=== PATIENT | male | born 1965 | race Caucasian/White ===

== ENCOUNTER 2024-04-25 18:57 | Inpatient (IN) | payer MEDICARE, SELFPAY ==
[2024-04-25] VITALS (10 sets, daily range): BP systolic 119–161; BP diastolic 67–87; PULSE 85–99; RESP 15–22; TEMP 36.6–37.1; O2SAT 86–98; BMI 25.6; BMI 34.7
--- NOTE | 2024-04-25 19:29 | EKG12_ITS ---
Test Reason : ALT MENTAL Blood Pressure : / mmHG Vent. Rate : 097 BPM Atrial Rate : 097 BPM P-R Int : 150 ms QRS Dur : 068 ms QT Int : 340 ms P-R-T Axes : -17 038 051 degrees QTc Int : 431 ms Normal sinus rhythm Normal ECG Confirmed by MARCO OJEDA, SOLOMON ([id number]), editor department ADEBAYO GARZA ([id number]) on 04/27/2024 6:54:47 AM Referred By: MERLE Confirmed By:SOLOMON LARA MD
--- NOTE | 2024-04-25 19:29 | CT_ITS ---
EXAM: CT HEAD WITHOUT INTRAVENOUS CONTRAST CLINICAL INDICATION: confusion TECHNIQUE: Multiple axial images were obtained of the head without intravenous contrast. This CT exam was performed using one or more of the following dose reduction techniques: automated exposure control, adjustment of the mA and/or kV according to patient size, and/or use of iterative reconstruction technique. COMPARISON: No relevant prior studies available. FINDINGS: BRAIN AND EXTRA-AXIAL SPACES: No significant abnormality. No intra- or extra-axial hemorrhage. No evidence of acute infarct. No intracranial mass or mass effect. There is preservation of the danielson/white matter interface. Ventricles are appropriate for age. Basal cisterns are patent. BONES/JOINTS: No significant abnormality. No discrete lytic or blastic abnormalities. SINUSES: No significant findings. MASTOID AIR CELLS: No significant effusion. ORBITS: No acute findings. CT/Brain/Head without Contrast IMPRESSION: Negative head/brain CT without intravenous contrast. Electronically Signed: Jeanmarie Young DO at 21:00 EDT ,
--- NOTE | 2024-04-25 19:38 | EDS_ITS ---
HPI History of Present Illness Chief Complaint: Suicidal Detail of Chief Complaint: Suicidal ideation, shortness of breath, confusion Informant: patient Narrative Narrative: Patient presents via EMS secondary to shortness of breath and suicidal ideation. Reportedly he was recently admitted to another hospital for hyponatremia. I was able to review records. Patient was admitted to [facility] from April 17 through April 23 secondary to confusion, hyponatremia, alcohol withdrawal. Reportedly his sodium level was 96 on admission. Patient was seen again at [facility] emergency room yesterday. At that time he was noted to be hypoxic on room air and patient stated that he was supposed to be discharged home on oxygen but did not wait for it. Yesterday he had an extensive workup and at that time his sodium was 121. He did qualify for home oxygen and per documentation he was discharged on 2 L nasal cannula home oxygen. Patient presents today via EMS after a friend of the campground called concerned about his erratic behavior and confusion. He reports suicidal ideation with plan to shoot himself in the head. He denies any prior attempts to harm himself. He does admit to some alcohol use today. He reports a history of cocaine use in the distant past, but denies any drug use today. [facility] Medical History Substance abuse Alcohol abuse Anxiety Depression Hypothyroidism Osteoporosis Smoker Sleep apnea COPD (chronic obstructive pulmonary disease) Irregular heart beat Migraines Allergy/AdvReac Type Severity Reaction Status Date / Time Penicillins AdvReac Intermediate rash Verified 04/25/24 19:42 Social History Smoking Status: Current every day smoker tobacco type: cigarettes ROS ROS ED Constitutional Constitutional ED: Reports fever(s) and subjective ENT ENT ED: Denies rhinorrhea or sore throat Cardiovascular Cardiovascular: Reports chest pain Respiratory/Chest Respiratory/Chest: Reports dyspnea Gastrointestinal Gastrointestinal: Denies diarrhea or vomiting Musculoskeletal Musculoskeletal: Denies arthralgias Neurologic Neurologic: Denies headache(s) Psychiatric Psychiatric: Denies anxiety or depression EXAM Physical Exam Const Vital Signs: 04/25/24 19:06 04/25/24 19:58 04/25/24 20:00 Temperature 98.7 F Temperature Source Oral Pulse Rate 91 88 99 Respiratory Rate 16 21 H 19 H Blood Pressure 161/85 H 136/83 H 136/83 H Blood Pressure Mean 110 100 100 Pulse Ox 86 98 98 Oxygen Delivery Method Room Air Nasal Cannula Nasal Cannula Oxygen Flow Rate (L/min) 3 3 04/25/24 21:00 Temperature Temperature Source Pulse Rate 98 Respiratory Rate 21 H Blood Pressure 132/84 H Blood Pressure Mean 100 Pulse Ox 98 Oxygen Delivery Method Nasal Cannula Oxygen Flow Rate (L/min) 3 Positive well nourished and well developed General Appearance ED: well developed HEENT Reports moist mucous membranes Eyes EOMs intact bilaterally Chest Wall inspection of chest normal and palpation of chest normal Resp normal respiratory effort and clear to auscultation bilaterally Cardio regular rate and regular rhythm GI non-tender Palpation: soft Extremity normal to inspection Neuro Neuro Narrative: Patient alert and will answer questions appropriately, but is somewhat slow to answer. No focal neurologic deficit. 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 He is currently on 2 L nasal cannula. IV line established. Labwork obtained to evaluate for leukocytosis, anemia, and electrolyte derangement. Patient will be given normal saline at 150 cc/h. Chest x-ray obtained to evaluate for acute lung pathology, cardiac size, or mediastinal abnormality. CT head will be obtained secondary to his confusion. History & Record Review Discussion w/independent historian: Patient Additional record(s) reviewed:: Prior inpatient record, Prior outpatient record and Prior labs Lab Data Attestation: I reviewed the patient's lab results. Labs: Laboratory Results - last 24 hr 04/25/24 04/25/24 20:04 21:10 WBC 10.1 RBC 3.79 L Hgb 12.2 L Hct 34.6 L MCV 91.3 MCH 32.2 H MCHC 35.3 RDW Std Deviation 45.1 H RDW Coeff of Scott 13.3 Plt Count 318 MPV 8.7 Immature Gran % (Auto) 3.600 H Neut % (Auto) 65.0 Lymph % (Auto) 18.5 L [place] % (Auto) 10.0 Eos % (Auto) 2.4 Baso % (Auto) 0.5 Absolute Neuts (auto) 6.6 Absolute Lymphs (auto) 1.87 Nucleated RBC % 0 D-Dimer Quant (PE/DVT) 0.65 H* Sodium 124 L Potassium 3.7 Chloride 86 L Carbon Dioxide 27.0 Anion Gap 11 BUN 10 Creatinine 0.89 Estim Creat Clear Calc 69.87 Est GFR (MDRD) Af Amer 113 Est GFR (MDRD) Non-Af 93 BUN/Creatinine Ratio 11.3 Glucose 113 H Calcium 9.5 Total Bilirubin 0.60 Direct Bilirubin 0.23 AST 26 ALT 50 Alkaline Phosphatase 51 Troponin I High Sens 5 Total Protein 7.4 Albumin 3.5 Globulin 3.9 Lipase 25 Urine Opiates Screen NEGATIVE Urine Methadone Screen NEGATIVE Ur Barbiturates Screen POSITIVE H Ur Phencyclidine Scrn NEGATIVE Ur Amphetamines Screen NEGATIVE MDMA (Ecstasy) Screen NEGATIVE U Benzodiazepines Scrn NEGATIVE Urine Cocaine Screen NEGATIVE U Cannabinoids Screen POSITIVE H Ur Drug Screen Comment Ethyl Alcohol 3.0 Radiography Chest X-Ray - ED: 1 View, Read by ED Physician, Chronic Changes and No Infiltrates Diagnostic Testing: Clinical Impression(s) from Imaging Studies Brain CT 04/25/24 19:29 IMPRESSION: Negative head/brain CT without intravenous contrast. Electronically Signed: Jeanmarie Wynnjasenmary janeDO at 21:00 EDT , Chest X-Ray 04/25/24 20:22 IMPRESSION: No radiographic evidence of acute cardiopulmonary disease. Electronically Signed: Jeanmarie YoungDO at 21:00 EDT , EKG Initial EKG: Attestation: I personally reviewed and interpreted this EKG as follows: Interpretation: Sinus Rhythm (Normal sinus rhythm 97 bpm. No acute ischemia.) Treatment and Re-Evaluation :: CBC was a white count of 10.1 with 65% neutrophils. Hemoglobin is 12.2 with hematocrit of 34.6. Chemistry studies significant for a sodium of 124 and a chloride of 86. Potassium is normal at 3.7. LFTs are unremarkable. Troponin is normal at 5. EtOH is 3. D-dimer is slightly elevated at 0.65. This was ordered initially when I saw the patient and he had hypoxia with complaints of some chest pressure. After reviewing records patient has had hypoxia that has been worked up. He is supposed to be wearing home oxygen and has not. He does not have pleuritic chest pain, does not appear dyspneic or tachypneic. He is not tachycardic. I do not feel he needs a CTA of the chest to rule out a clot. Chest x-ray per my interpretation was no evidence of focal infiltrate. Radiology interpretation reviewed and agrees. EKG is unremarkable with no evidence of ischemia. Patient will require evaluation by crisis, however with his hypoxia and hyponatremia I do not think I can medically clear him until he is more stable. I will speak with hospitalist regarding observation and evaluation by crisis on the floor. Patient did fall asleep in the emergency room. Even with nasal cannula in place, he desaturates secondary to his obstructive sleep apnea. He is placed on CPAP at bedside by respiratory therapy. Discharge Plan Dx/Rx/DC Orders Clinical Impression: Hyponatremia, Confusion, Hypoxia, Suicidal ideation Disposition Disposition: Acute Care Hospital [facility]
[2024-04-25 20:12] LABS: Absolute Lymphocyte Count 1.87 X10^3/uL (0.83-4.51); Absolute Neutrophil Count 6.6 X10^3/uL (2.0-7.7); Basophil# 0.05 X10^3/uL; Basophil% 0.5 % (0-1); Eosinophil# 0.24 X10^3/uL; Eosinophils% 2.4 % (0-5); Hematocrit 34.6 % (40-54); Hemoglobin 12.2 g/dL (13.0-16.5); Lymphocyte # 1.87 X10^3/ul (0.83-4.51); Lymphocyte % 18.5 % (19-41); Mean Corp Hgb Conc 35.3 g/dL (32-36); Mean Corpuscular Hgb 32.2 pg (27.0-32.0); Mean Corpuscular Volume 91.3 fL (80-94); Mean Platelet Vol. 8.7 fl (6.2-12.0); Monocyte# 1.01 X10^3/uL; NRBC Flagged by Analyzer 0 % (0-5); Neutrophil # 6.58 X10^3/uL (2.7-7.7); Platelet Count 318 K/mm3 (150-450); RBC Distribution Width CV 13.3 % (11.6-14.6); RBC Distribution Width SD 45.1 fl (35.1-43.9); Red Blood Count 3.79 M/mm3 (4.6-6.2); White Blood Count 10.1 K/mm3 (4.4-11.0)
--- NOTE | 2024-04-25 20:22 | RAD_ITS ---
EXAM: XR CHEST, 1 VIEW CLINICAL INDICATION: sob TECHNIQUE: Frontal view of the chest. COMPARISON: No relevant prior studies available. FINDINGS: LUNGS AND PLEURAL SPACES: No significant abnormality. No consolidation or edema. No pneumothorax. No effusion. HEART: No significant abnormality. Cardiac silhouette not enlarged. MEDIASTINUM: Central airways and mediastinal contour are unremarkable. BONES/JOINTS: No significant abnormality. No acute fracture. SOFT TISSUES: No significant abnormality. RAD/Chest 1 View (Portable) IMPRESSION: No radiographic evidence of acute cardiopulmonary disease. Electronically Signed: Jeanmarie Young DO at 21:00 EDT ,
[2024-04-25 20:25] LABS: D-Dimer Quantitative (DVT/PE) 0.65 FEU/ug/m (0.27-0.49)
[2024-04-25 20:31] LABS: AST(SGOT) 26 U/L (15-37); Alanine Aminotransfer ALT/SGPT 50 U/L (16-61); Albumin, Serum 3.5 g/dL (3.2-5.0); Alkaline Phosphatase 51 U/L (45-117); Anion Gap 11 (5-15); BUN 10 mg/dL (7-18); BUN/Creat Ratio 11.3 RATIO (10-20); Bilirubin, Direct 0.23 mg/dL (0.00-0.30); Calcium,Total 9.5 mg/dL (8.5-10.1); Chloride 86 mmol/L (98-107); Creatinine, Serum 0.89 mg/dL (0.70-1.30); EST Glomerular Filtration Rate 93 mL/min (>60); Est Glom Filt Rate - Afr Amer 113 mL/min (>60); Estimated Creatinine Clearance 69.87 ml/min; Globulin 3.9 g/dL (2.2-4.2); Glucose 113 mg/dL (74-106); Lipase 25 U/L (13-75); Potassium 3.7 mmol/L (3.5-5.1); Protein, Total 7.4 g/dL (6.4-8.2); Sodium Level 124 mmol/L (136-145); Troponin-I HS 5 pg/mL (3.0-78.0)
[2024-04-25] MEDS: 0.9% Normal Saline (1000mL) 1,000 ML 150 ML IV (20:31)
[2024-04-25 21:29] LABS: Amphetamine Urine VISTA NEGATIVE (<1000 ng/mL); Barbiturate Urine VISTA POSITIVE (< 200 ng/mL); Benzodiazepine Urine VISTA NEGATIVE (< 200 ng/mL); Cocaine Urine VISTA NEGATIVE (< 300 ng/mL); Ecstacy Urine VISTA NEGATIVE (< 500 ng/mL); Methadone Urine VISTA NEGATIVE (< 300 ng/mL); PCP Urine VISTA NEGATIVE (< 25 ng/mL); THC Urine VISTA POSITIVE (< 50 ng/mL); Vista UDS pH Range 6
--- NOTE | 2024-04-25 21:54 | HP.PCM.HOS_ITS ---
HPI - General General Date of Admission: 04/25/24 Date of Service: 04/25/24 Chief Complaint: Agitation, suicidal ideation, hypoxia. HPI Narrative The patient is a 58 y/o M w/ PMHx: Chronic migraines, YURI on CPAP q HS, Hypothyroidism, Anxiety and Depression, EtOH abuse, COPD w/ Chronic Hypoxic Respiratory Failure (2L NC), tobacco use, Alcohol abuse, Polysubstance abuse (cocaine, cannabis) who presents to the [facility] ED on 04/25/24 with history of recent history of admission to [facility] 04/17/24-04/23/24 secondary to significant confusion, hyponatremia and alcohol withdrawal with reportedly his sodium at that admission 96 with evaluation in [place] ED the day prior to current presentation noted to be hypoxic on room air and unfortunately patient had reportedly been hypoxic during his evaluation and treatment the initial time and was supposed to be discharged on oxygen 2 L nasal cannula at his discharge but unfortunately he did not wait for this to be set up and left AMA now presenting with EMS secondary to concern for significant erratic behavior and confusion with patient reporting that he plans to shoot himself in the head with no prior history of attempting to self-harm with some alcohol use on day of presentation as well as a history of past cocaine use but denies any drug usage on current day of presentation. He notes that he went crazy. In the ED following interventions oxygen supplementation patient is completely alert and oriented and does state that he has had an occasional beer but has not started drinking again heavily. He notes that over the last 5 days he has had significant increased anxiety and describes them as panic attacks. He does admit to having stated he wanted to kill himself and shoot himself but he is now denying that sentiment. Workup in the ED included T98.7, heart rate 91, BP 161/85, respiratory rate 18, initially noted to 86% on room air however patient was sleeping at that time, most recent repeat vital signs heart rate 98, BP 132/84, respiratory rate 21, 98% on 3 L, CBC with WBC 10.1, hemoglobin 12.2, MCV 91.3, platelet 318 with increased immature granulocytes, D-dimer 0.65, CMP with sodium 124, chloride 86, glucose 113 otherwise hepatic profile unremarkable, troponin 5, lipase 25, UDS with positive barbiturates and cannabis, ethyl alcohol 3, CT of the brain with no acute intracranial findings, chest x-ray with no acute cardiopulmonary findings, EKG was sinus rhythm with no acute evidence of ischemia. In the ED patient ministered maintenance IV fluids. [facility] Medical History (Updated 04/25/24 @ 21:[address] Nuris Gil MD) Substance abuse Alcohol abuse Anxiety Depression Hypothyroidism Osteoporosis Smoker Sleep apnea COPD (chronic obstructive pulmonary disease) Irregular heart beat Migraines Home Medications ?Medication ?Instructions ?Recorded ?Last Taken ?Type atorvastatin 40 mg tablet 40 mg PO DAILY 04/25/24 Unknown History cyclobenzaprine 10 mg tablet 10 mg PO TID 04/25/24 Unknown History diclofenac sodium 1 % topical gel 2 g topical DAILY 04/25/24 Unknown History folic acid 1 mg tablet 1 mg PO DAILY 04/25/24 Unknown History furosemide 20 mg tablet (Lasix) 20 mg PO DAILY 04/25/24 Unknown History gabapentin 100 mg capsule 100 mg PO DAILY 04/25/24 Unknown History hydroxyzine pamoate 50 mg capsule 50 mg PO TID PRN PRN itch 04/25/24 Unknown History levothyroxine 75 mcg tablet 75 mcg PO DAILY 04/25/24 Unknown History (Euthyrox) losartan 50 mg-hydrochlorothiazide 1 tab PO DAILY 04/25/24 Unknown History 12.5 mg tablet (Hyzaar) metoprolol tartrate 25 mg tablet 25 mg PO BID 04/25/24 Unknown History multivitamin with iron (Daily 1 tab PO DAILY 04/25/24 Unknown History Vitamin with Iron tablet) pyridoxine (vitamin B6) 100 mg 100 mg PO DAILY 04/25/24 Unknown History tablet tamsulosin 0.4 mg capsule (Flomax) 0.4 mg PO DAILY 04/25/24 Unknown History Allergy/AdvReac Type Severity Reaction Status Date / Time Penicillins AdvReac Intermediate rash Verified 04/25/24 19:42 Family History (Updated 04/25/24 @ 22:[address] Magi Rodriguez MD) Mother Heart disease Hypertension Father Alcoholism Surgical History (Updated 04/25/24 @ 22:[address] Magi Rodriguez MD) S/P right inguinal hernia repair Status post bilateral total hip replacement Social History (Updated 04/25/24 @ 22:[address] Magi Rodriguez MD) household members: other details: Notes having a roommate. Smoking Status: Current every day smoker tobacco type: cigarettes alcohol intake: current alcohol intake frequency: a few times a month details: Prior heavy liquor/beer intake, notes only couple beers since recent dc. substance use type: former substance user Date of last use: Prior cocaine usage. and marijuana ROS ROS Narrative Admission Review of Systems: CONSTITUTIONAL: No weight loss, fever, chills, + weakness or fatigue. HEENT: Eyes: No visual loss, blurred vision, double vision or yellow sclerae. Ears, Nose, Throat: No hearing loss, sneezing, congestion, runny nose or sore throat. SKIN: No rash or itching, lesions, wounds. CARDIOVASCULAR: No chest pain, chest pressure or chest discomfort, palpitations, edema, orthopnea, syncopal events. RESPIRATORY: + Chronic cough with nonproductive sputum. No shortness of breath,, occasional wheezing hemoptysis. GASTROINTESTINAL: No anorexia, nausea, vomiting or diarrhea, abdominal pain, melena, BRBPR. GENITOURINARY: No dysuria, frequency, urgency or retention. NEUROLOGICAL: + Transient significant confusion while hypoxic, improved. No headache, dizziness, syncope, paralysis, ataxia, numbness or tingling in the extremities, focal weakness, change in bowel or bladder control, seizure. MUSCULOSKELETAL: + Muscle, back pain, joint pain or stiffness. HEMATOLOGIC: + Chronic anemia, easy bleeding/bruising. LYMPHATICS: No enlarged nodes. No history of splenectomy. PSYCHIATRIC: + History of anxiety and depression and reports recently panic attacks in addition to recent suicidal ideation. ENDOCRINOLOGIC: No reports of sweating, cold or heat intolerance. No polyuria or polydipsia. ALLERGIES: + History of rhinitis. Vital Signs Vital Signs Vital Signs: 04/25/24 19:06 04/25/24 19:58 04/25/24 20:00 Temperature 98.7 F Temperature Source Oral Pulse Rate 91 88 99 Respiratory Rate 16 21 H 19 H Blood Pressure 161/85 H 136/83 H 136/83 H Blood Pressure Mean 110 100 100 Pulse Ox 86 98 98 Oxygen Delivery Method Room Air Nasal Cannula Nasal Cannula Oxygen Flow Rate (L/min) 3 3 04/25/24 21:00 Temperature Temperature Source Pulse Rate 98 Respiratory Rate 21 H Blood Pressure 132/84 H Blood Pressure Mean 100 Pulse Ox 98 Oxygen Delivery Method Nasal Cannula Oxygen Flow Rate (L/min) 3 Weight Weight: 140 lb Body Mass Index (BMI) 25.6 Physical Exam Narrative Physical Examination: General: Initially on CPAP but awakens, alert, oriented times greater than 3, cooperative, seated upright in the ED bed, fatigued but following discussion suspect this is at his baseline. Skin: Normal color, normal turgor, no icterus, no cyanosis except very staged ecchymoses likely from recent IV placements with recent admission. HEENT: AT/NC, EOMI, PERRLA, moderately dry MM, no carotid bruits or JVD noted. Lungs: Mildly diminished, greater bases, appropriate effort, occasional coughing during evaluation but nonproductive, no rales, ronchi or wheezing. Heart: Regular rate and rhythm; no gallop, rub audible. Abdomen: Soft, overweight, NTTP, ND, mildly hyperactive BS, no appreciated HSM. Extremities: No cyanosis, clubbing, or edema. Neurological: Patient awake, alert, oriented as noted, cognitive function improved and suspect currently baseline intact; pupils equally reactive to light and accommodation, cranial nerves grossly normal, moving all 4 extremities, no focal deficits, strength preserved. Psychiatric: Affect appears fatigued but currently appears normal, discussed recent suicidal ideation and he notes he was having recent panic attacks with underlying anxiety and depression, currently is aware that he made those statements but states he does not feel that way currently. Results Lab / Micro Data 04/25/24 20:04 04/25/24 20:04 Labs: Laboratory Results - last 24 hr 04/25/24 20:04: WBC 10.1, RBC 3.79 L, Hgb 12.2 L, Hct 34.6 L, MCV 91.3, MCH 32.2 H, MCHC 35.3, RDW Std Deviation 45.1 H, RDW Coeff of Scott 13.3, Plt Count 318, MPV 8.7, Immature Gran % (Auto) 3.600 H, Neut % (Auto) 65.0, Lymph % (Auto) 18.5 L, [place] % (Auto) 10.0, Eos % (Auto) 2.4, Baso % (Auto) 0.5, Absolute Neuts (auto) 6.6, Absolute Lymphs (auto) 1.87, Nucleated RBC % 0, D-Dimer Quant (PE/DVT) 0.65 H*, Sodium 124 L, Potassium 3.7, Chloride 86 L, Carbon Dioxide 27.0, Anion Gap 11, BUN 10, Creatinine 0.89, Estim Creat Clear Calc 69.87, Est GFR (MDRD) Af Amer 113, Est GFR (MDRD) Non-Af 93, BUN/Creatinine Ratio 11.3, G lucose 113 H, Calcium 9.5, Total Bilirubin 0.60, Direct Bilirubin 0.23, AST 26, ALT 50, Alkaline Phosphatase 51, Troponin I High Sens 5, Total Protein 7.4, Albumin 3.5, Globulin 3.9, Lipase 25, Ethyl Alcohol 3.0 04/25/24 21:10: Urine Opiates Screen NEGATIVE, Urine Methadone Screen NEGATIVE, Ur Barbiturates Screen POSITIVE H, Ur Phencyclidine Scrn NEGATIVE, Ur Amphetamines Screen NEGATIVE, MDMA (Ecstasy) Screen NEGATIVE, U Benzodiazepines Scrn NEGATIVE, Urine Cocaine Screen NEGATIVE, U Cannabinoids Screen POSITIVE H, Ur Drug Screen Comment Imaging Radiology Impression Brain CT 04/25/24 19:29 IMPRESSION: Negative head/brain CT without intravenous contrast. Electronically Signed: Jeanmarie Radha Young DO at 21:00 EDT , Chest X-Ray 04/25/24 20:22 IMPRESSION: No radiographic evidence of acute cardiopulmonary disease. Electronically Signed: Jeanmarie Radha Young DO at 21:00 EDT , Assessment & Plan Assessment/Plan (1) Hypoxia: PLAN: Plan The patient is a 58 y/o M w/ PMHx: Chronic migraines, YURI on CPAP q HS, Hypothyroidism, Anxiety and Depression, EtOH abuse, COPD w/ Chronic Hypoxic Respiratory Failure (2L NC), tobacco use, Alcohol abuse, Polysubstance abuse (cocaine/cannabis) who presents to the [facility] ED on 04/25/24 with history of recent history of admission to [facility] 04/17/24-04/23/24 secondary to significant confusion, hyponatremia and alcohol withdrawal with reportedly his sodium at that admission 96 with evaluation in [place] ED the day prior to current presentation noted to be hypoxic on room air and unfortunately patient had reportedly been hypoxic during his evaluation and treatment the initial time and was supposed to be discharged on oxygen 2 L nasal cannula at his discharge but unfortunately he did not wait for this to be set up and left AMA now presenting with EMS secondary to concern for significant erratic behavior and confusion with patient reporting that he plans to shoot himself in the head with no prior history of attempting to self-harm with some alcohol use on day of presentation as well as a history of past cocaine use but denies any drug usage on current day of presentation. He notes that he went crazy. #1. Acute Encephalopathy, suspect Multifactorial, concern for Acute Hypoxia secondary to noncompliance with home oxygen therapy with underlying COPD with chronic hypoxic respiratory failure as well as concern for potentially recurrent Acute EtOH Withdrawal but lower suspicion as well as evidence of polysubstance abuse with also positive cannabis: Will admit to MS, will continue oxygen supplementation to maintain appropriate saturations, mentation seems to improved with placing patient back on supplementation he is already supposed to be on and per his report now is already set up at home but he does not use unfortunately, given patient does report alcohol intake today and now his level is negative some concern for withdrawal but again patient is not tachycardic and does not seem tremulous or anything of the sort thus lower suspicion but to be cautious will maintain on CIWA and if becomes appropriate would initiate tapering course of phenobarbital, will have as needed gabapentin, Catapres, Bentyl, Vistaril, IV fluids, IV antiemetics, Tylenol as needed for pain. Will consult Case management for substance abuse and also for suicidal ideation. Mag, phos pending. Will maintain on multivitamin, thiamine and folic acid. Given patient is now alert and oriented and states that he did in fact admit to 1 to kill himself but believes this sentiment was made in haste because of his recent increased anxiety and panic attacks and is no longer feeling this way with stable current status if no further acute events overnight would plan crisis evaluation in AM. #2. Hyponatremia, hypochloremia, unclear chronicity given alcohol abuse history reported, however hypovolemic component suspected: Admission sodium 124, chloride 86, no prior comparison labs but patient does have alcohol abuse history, will continue to judiciously hydrate and repeat CMP in the a.m. to further elucidate. #3. Hypertension, possibly arrhythmia but unclear: Continue home regimen including metoprolol, PRN hydralazine. #4. Hypothyroidism: Chart reported history, unable to determine patient's medications, will obtain TSH and free T4 to be cautious. #5. Chronic COPD w/ Chronic Hypoxic Respiratory Failure: Will maintain on oxygen with wean as tolerated to home 2L NC, will maintain on ATC budesonide therapy, PRN albuterol, HOB, IS parameters. #6. Chronic normocytic anemia, unclear chronicity: Admission hemoglobin 12.2, MCV 91.3, baseline hemoglobin unknown, will continue to trend CBC to further elucidate. #7. Former tobacco use: Encourage continued tobacco cessation. #8. YURI: Will maintain on CPAP nightly. #9. DVT prophylaxis: Lovenox. Charges/Coding Visit Charges Inpatient E&M: 78047 Init Hosp L2
--- NOTE | 2024-04-25 22:14 | CPS ---
VP ACCOUNT DIRECTOR bled in 3L O2
--- NOTE | 2024-04-25 22:23 | CPS ---
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
[2024-04-25 22:53] LABS: Procalcitonin 0.05 ng/mL (0.00-0.09)
[2024-04-25 23:00] LABS: Magnesium 2.1 mg/dL (1.6-2.6)
--- NOTE | 2024-04-25 23:58 | CPS ---
Pt refusing bipap at this time
[2024-04-26] VITALS (12 sets, daily range): BP systolic 118–137; BP diastolic 72–77; PULSE 72–89; RESP 15–18; TEMP 36.7–37.1; O2SAT 3–96; BMI 34.9
[2024-04-26] MEDS: 0.9% Normal Saline (1000mL) 1,000 ML 125 ML IV ×2 (00:23→09:47)
[2024-04-26 05:09] LABS: Absolute Lymphocyte Count 2.11 X10^3/uL (0.83-4.51); Absolute Neutrophil Count 4.3 X10^3/uL (2.0-7.7); Basophil# 0.08 X10^3/uL; Eosinophils% 3.7 % (0-5); Hematocrit 31.9 % (40-54); Hemoglobin 10.5 g/dL (13.0-16.5); Lymphocyte # 2.11 X10^3/ul (0.83-4.51); Mean Corp Hgb Conc 32.9 g/dL (32-36); Mean Corpuscular Hgb 31.1 pg (27.0-32.0); Mean Corpuscular Volume 94.4 fL (80-94); Mean Platelet Vol. 8.6 fl (6.2-12.0); Monocyte# 1.01 X10^3/uL; Monocyte% 12.4 % (0-10); NRBC Flagged by Analyzer 0 % (0-5); Neutrophil # 4.28 X10^3/uL (2.7-7.7); Neutrophil % 52.6 % (47-70); Platelet Count 281 K/mm3 (150-450); RBC Distribution Width CV 13.4 % (11.6-14.6); RBC Distribution Width SD 46.2 fl (35.1-43.9); Red Blood Count 3.38 M/mm3 (4.6-6.2); White Blood Count 8.1 K/mm3 (4.4-11.0)
[2024-04-26 06:00] LABS: ALB/GLOB Ratio 0.9 RATIO (0.9-2.4); AST(SGOT) 24 U/L (15-37); Alanine Aminotransfer ALT/SGPT 44 U/L (16-61); Albumin, Serum 3.1 g/dL (3.2-5.0); Alkaline Phosphatase 46 U/L (45-117); Anion Gap 8 (5-15); BUN 9 mg/dL (7-18); BUN/Creat Ratio 11.9 RATIO (10-20); Calcium,Total 8.9 mg/dL (8.5-10.1); Chloride 93 mmol/L (98-107); Creatinine, Serum 0.76 mg/dL (0.70-1.30); EST Glomerular Filtration Rate 112 mL/min (>60); Est Glom Filt Rate - Afr Amer 136 mL/min (>60); Globulin 3.5 g/dL (2.2-4.2); Glucose 116 mg/dL (74-106); Potassium 4.3 mmol/L (3.5-5.1); Protein, Total 6.6 g/dL (6.4-8.2); Sodium Level 127 mmol/L (136-145); T4 Free Direct 1.05 ng/dL (0.76-1.46); Thyroid Stim Hormone (TSH) 5.55 uIU/mL (0.358-3.74)
--- NOTE | 2024-04-26 07:20 | PN.HOSP_ITS ---
Reason for Visit Reason for Visit: Diagnoses Hypoxemia (04/25/24) Objective Data Objective Data Vital Signs: Vital Signs Temp Pulse Resp BP Pulse Ox O2 Del Method O2 Flow Rate 98.8 F 72 15 137/77 H 96 Nasal Cannula 3 04/26/24 02:04 04/26/24 02:04 04/26/24 04:30 04/26/24 02:04 04/26/24 02:04 04/26/24 04:30 04/26/24 04:30 Oxygen Flow Rate (L/min) 3 Oxygen Delivery Method Nasal Cannula Weight: 189 lb 13.088 oz Body Mass Index (BMI) 34.9 Lab / Micro Data 04/26/24 04:45 04/26/24 09:23 Labs: Laboratory Results - last 24 hr 04/25/24 20:04: WBC 10.1, RBC 3.79 L, Hgb 12.2 L, Hct 34.6 L, MCV 91.3, MCH 32.2 H, MCHC 35.3, RDW Std Deviation 45.1 H, RDW Coeff of Scott 13.3, Plt Count 318, MPV 8.7, Immature Gran % (Auto) 3.600 H, Neut % (Auto) 65.0, Lymph % (Auto) 18.5 L, [place] % (Auto) 10.0, Eos % (Auto) 2.4, Baso % (Auto) 0.5, Absolute Neuts (auto) 6.6, Absolute Lymphs (auto) 1.87, Nucleated RBC % 0, D-Dimer Quant (PE/DVT) 0.65 H*, Sodium 124 L, Potassium 3.7, Chloride 86 L, Carbon Dioxide 27.0, Anion Gap 11, BUN 10, Creatinine 0.89, Estim Creat Clear Calc 69.87, Est GFR (MDRD) Af Amer 113, Est GFR (MDRD) Non-Af 93, BUN/Creatinine Ratio 11.3, Glucose 113 H, Calcium 9.5, Total Bilirubin 0.60, Direct Bilirubin 0.23, AST 26, ALT 50, Alkaline Phosphatase 51, Troponin I High Sens 5, Total Protein 7.4, Albumin 3.5, Globulin 3.9, Lipase 25, Ethyl Alcohol 3.0 04/25/24 21:10: Urine Opiates Screen NEGATIVE, Urine Methadone Screen NEGATIVE, Ur Barbiturates Screen POSITIVE H, Ur Phencyclidine Scrn NEGATIVE, Ur Amphetamines Screen NEGATIVE, MDMA (Ecstasy) Screen NEGATIVE, U Benzodiazepines Scrn NEGATIVE, Urine Cocaine Screen NEGATIVE, U Cannabinoids Screen POSITIVE H, Ur Drug Screen Comment 04/25/24 22:20: Phosphorus 5.0 H, Magnesium 2.1, Procalcitonin 0.05 04/26/24 04:45: WBC 8.1, RBC 3.38 L, Hgb 10.5 L, Hct 31.9 L, MCV 94.4 H, MCH 31.1, MCHC 32.9 D, RDW Std Deviation 46.2 H, RDW Coeff of Scott 13.4, Plt Count 281, MPV 8.6, Immature Gran % (Auto) 4.300 H, Neut % (Auto) 52.6, Lymph % (Auto) 26.0, [place] % (Auto) 12.4 H, Eos % (Auto) 3.7, Baso % (Auto) 1.0, Absolute Neuts (auto) 4.3, Absolute Lymphs (auto) 2.11, Nucleated RBC % 0, Sodium 127 L, Potassium 4.3, Chloride 93 L, Carbon Dioxide 26.0, Anion Gap 8, BUN 9, Creatinine 0.76, Estim Creat Clear Calc 100.70, Est GFR (MDRD) Af Amer 136, Est GFR (MDRD) Non-Af 112, BUN/Creatinine Ratio 11.9, Glucose 116 H, Calcium 8.9, Total Bilirubin 0.50, AST 24, ALT 44, Alkaline Phosphatase 46, Total Protein 6.6, Albumin 3.1 L, Globulin 3.5, Albumin/Globulin Ratio 0.9, TSH 5.55 H, Free T4 1.05 Radiography Diagnostic Testing: Radiology Impression Brain CT 04/25/24 19:29 IMPRESSION: Negative head/brain CT without intravenous contrast. Electronically Signed: Jeanmarie Young DO at 21:00 EDT , Chest X-Ray 04/25/24 20:22 IMPRESSION: No radiographic evidence of acute cardiopulmonary disease. Electronically Signed: Jeanmarie Young DO at 21:00 EDT , Chest CTA 04/26/24 23:23 IMPRESSION: Significant diffuse bilateral patchy groundglass airspace disease, upper lobe predominant, to include atypical infectious etiology. Recommend follow-up to resolution as neoplastic process is not excluded. No pulmonary embolus or acute aortic abnormality. Electronically Signed: Maximo Colon MD at 3:53 EDT , Physical Exam Narrative Patient states he smokes 2 packs/day since age of 17 or 18. He also worked in the [employer] company for 30 years. Drinks alcohol about 3-4 beers daily and sometimes hard liquor 3 shots. No fever. Patient has cough and brings up white mucus for last 1 to 2 weeks but no fever. Mild shortness of breath on exertion. Was prescribed 2 L of oxygen on April 24 Physical exam General: Alert, Oriented x3, Cooperative obesity grade 34.7 kg/m? HEENT: Atraumatic, PERRLA, EOMI, Normocephalic Oral: Oral mucosa moist no Gingival or Mucosal Lesions/ Ulcerations Neck: Supple, No JVD, Negative Carotid Bruits Chest wall/Lungs: Air entry diminished in bilateral lung bases. Bilateral coarse crepitations Cardiovascular: Regular rate, Regular Rhythm, Normal S1, Normal S2, No M/G/R Abdomen: Bowel Sounds Present, Soft, Non Tender, Non-Distended : No dysuria. No renal angle tenderness. No suprapubic tenderness. Extremities: No edema, Capillary Refill Less than 3 Seconds Skin: No rashes, No breakdown Musculoskeletal: No Tenderness to Palpation of Joints or Extremities Neurological: Cranial nerves II-XII grossly intact, DTR 2+/4. No acute focal neurological deficit. Psych/Mental Status: Flat affect. Had suicidal ideation but denies past attempt Assessment & Plan Assessment/Plan (1) Hypoxia: PLAN: Plan The patient is a 58 y/o M was brought to ED by squad for suicidal ideation, shortness of breath. Patient was having erratic behavior, confusion and SI with plan to shoot himself in the head. Patient was recently admitted in [facility] from April 17 to April 23 due to confusion, hyponatremia and alcohol withdrawal and reportedly, his sodium was 96 on admission at that time. Patient was again seen in the ER on 04/24 and was found to be hypoxic and was supposed to be discharged on oxygen but he did not wait for that. Patient denies prior history of suicidal attempt. Patient drinks alcohol and had before coming to ED. History of cocaine use in the distant past but denies any recent use #1. Acute encephalopathy, multifactorial, metabolic and toxic along with probable chronic hypoxic respiratory failure: Patient is being admitted to MedSurg floor. U tox was positive of barbiturates and cannabinoids. Hyponatremia management as below. Crisis evaluation and patient is in baseline mental status. Case management consult #2. Hyponatremia, hypochloremia, seems subacute/chronic Trembly hypotonic hypovolemic hyponatremia: Admission sodium 124, chloride 86. Sodium improved to 127. About a week ago patient's sodium was 96 as mentioned above. IV fluid normal saline with follow-up serum sodium #3. Hypertension, possibly arrhythmia but unclear: Continue home regimen including metoprolol, PRN hydralazine. #4. Hypothyroidism: TSH 5.55. Free T4 normal. #5. COPD w/ Chronic Hypoxic Respiratory Failure: Chest CTA shows significant diffuse bilateral patchy groundglass airspace disease predominantly in upper lobes. No pulmonary embolus or acute aortic abnormality. Was recommended follow- up chest CT scan for evaluate reevaluation. Continue home 2L NC, maintenance ATC budesonide therapy, DuoNeb as needed, incentive spirometry and Pep. With CT findings showing of groundglass opacities, possible atypical infection, COVID flu and RSV PCR are negative. Respiratory panel ordered. Aspergillus and histoplasma antibody also ordered. Does not seem bacterial pneumonia and therefore antibiotic not indicated and patient not having acute indication like fever, dyspnea at rest or tachypnea. #6. Chronic normocytic anemia, unclear chronicity: Admission hemoglobin 12.2, MCV 91.3, baseline hemoglobin unknown, follow-up H&H 10.5/32%. #7. Former tobacco use: Encourage continued tobacco cessation. #8. YURI: Will maintain on CPAP nightly. #9. DVT prophylaxis: Lovenox. Admission status changed from observation to full admission. 04/25/24 20:04: WBC 10.1, RBC 3.79 L, Hgb 12.2 L, Hct 34.6 L, MCV 91.3, MCH 32.2 H, MCHC 35.3, RDW Std Deviation 45.1 H, RDW Coeff of Scott 13.3, Plt Count 318, MPV 8.7, Immature Gran % (Auto) 3.600 H, Neut % (Auto) 65.0, Lymph % (Auto) 18.5 L, [place] % (Auto) 10.0, Eos % (Auto) 2.4, Baso % (Auto) 0.5, Absolute Neuts (auto) 6.6, Absolute Lymphs (auto) 1.87, Nucleated RBC % 0, D-Dimer Quant (PE/DVT) 0.65 H*, Sodium 124 L, Potassium 3.7, Chloride 86 L, Carbon Dioxide 27.0, Anion Gap 11, BUN 10, Creatinine 0.89, Estim Creat Clear Calc 69.87, Est GFR (MDRD) Af Amer 113, Est GFR (MDRD) Non-Af 93, BUN/Creatinine Ratio 11.3, Glucose 113 H, Calcium 9.5, Total Bilirubin 0.60, Direct Bilirubin 0.23, AST 26, ALT 50, Alkaline Phosphatase 51, Troponin I High Sens 5, Total Protein 7.4, Albumin 3.5, Globulin 3.9, Lipase 25, Ethyl Alcohol 3.0 04/25/24 21:10: Urine Opiates Screen NEGATIVE, Urine Methadone Screen NEGATIVE, Ur Barbiturates Screen POSITIVE H, Ur Phencyclidine Scrn NEGATIVE, Ur Amphetamines Screen NEGATIVE, MDMA (Ecstasy) Screen NEGATIVE, U Benzodiazepines Scrn NEGATIVE, Urine Cocaine Screen NEGATIVE, U Cannabinoids Screen POSITIVE H, Ur Drug Screen Comment 04/25/24 22:20: Phosphorus 5.0 H, Magnesium 2.1, Procalcitonin 0.05 04/26/24 04:45: WBC 8.1, RBC 3.38 L, Hgb 10.5 L, Hct 31.9 L, MCV 94.4 H, MCH 31.1, MCHC 32.9 D, RDW Std Deviation 46.2 H, RDW Coeff of Scott 13.4, Plt Count 281, MPV 8.6, Immature Gran % (Auto) 4.300 H, Neut % (Auto) 52.6, Lymph % (Auto) 26.0, [place] % (Auto) 12.4 H, Eos % (Auto) 3.7, Baso % (Auto) 1.0, Absolute Neuts (auto) 4.3, Absolute Lymphs (auto) 2.11, Nucleated RBC % 0, Sodium 127 L, Potassium 4.3, Chloride 93 L, Carbon Dioxide 26.0, Anion Gap 8, BUN 9, Creatinine 0.76, Estim Creat Clear Calc 100.70, Est GFR (MDRD) Af Amer 136, Est GFR (MDRD) Non-Af 112, BUN/Creatinine Ratio 11.9, Glucose 116 H, Calcium 8.9, Total Bilirubin 0.50, AST 24, ALT 44, Alkaline Phosphatase 46, Total Protein 6.6, Albumin 3.1 L, Globulin 3.5, Albumin/Globulin Ratio 0.9, TSH 5.55 H, Free T4 1.05 Clinical Impression(s) from Imaging Studies Brain CT 04/25/24 19:29 IMPRESSION: Negative head/brain CT without intravenous contrast. Electronically Signed: Jeanmarie Young DO at 21:00 EDT , Chest X-Ray 04/25/24 20:22 IMPRESSION: No radiographic evidence of acute cardiopulmonary disease. Electronically Signed: Jeanmarie Young DO at 21:00 EDT , Chest CTA 04/26/24 23:23 IMPRESSION: Significant diffuse bilateral patchy groundglass airspace disease, upper lobe predominant, to include atypical infectious etiology. Recommend follow-up to resolution as neoplastic process is not excluded. No pulmonary embolus or acute aortic abnormality. Electronically Signed: Maximo Colon MD at 3:53 EDT , Charges/Coding Visit Charges Inpatient E&M: 34241 Subs Hosp L2
[2024-04-26 07:47] LABS: GGTP 104 U/L (15-85)
[2024-04-26] MEDS: Multivitamins,Ther W-Minerals Tablet 1 TABLET PO (09:48)
[2024-04-26] MEDS: Folic Acid 1 MG Tablet PO (09:48)
[2024-04-26] MEDS: Metoprolol Tartrate 25 MG Tablet PO ×2 (09:49→21:36)
[2024-04-26] MEDS: guaiFENesin 1,200 MG Tablet 1200 MG PO ×2 (09:49→21:37)
[2024-04-26] MEDS: Thiamine Hydrochloride 100 MG Tablet PO (09:49)
[2024-04-26] MEDS: Famotidine 20 MG Tablet PO ×2 (09:50→21:37)
[2024-04-26] MEDS: Enoxaparin 40 MG/0.4 ML Syringe SC (09:50)
[2024-04-26 09:52] LABS: Sodium Level 129 mmol/L (136-145)
[2024-04-26 10:06] LABS: Protein, Urine (Random) 8.1 mg/dL (<11.9); Protein:Creat Ratio 107 mg/g CRE (0-200); Urine Chloride 62 mmol/L (Not Establ.); Urine Sodium 72 mmol/L (Not Establ.)
[2024-04-26] MEDS: Budesonide Respules 0.5 MG/2 ML AMPUL.NEB. INHALATION ×2 (10:14→19:00)
[2024-04-26 10:17] LABS: Osmolality, Urine 397 mOsm/KG
[2024-04-26] MEDS: hydrOXYzine PAM 25 MG Capsule 50 MG PO ×2 (14:03→21:39)
[2024-04-26 14:14] LABS: Sodium Level 128 mmol/L (136-145)
--- NOTE | 2024-04-26 14:18 | NURSING ---
Per Dr. Mead, patient is medically cleared for evaluation by crisis. train caller crisis notified and information faxed to crisis at this time.
--- NOTE | 2024-04-26 15:15 | NURSING ---
Crisis in to see pt at this time.
--- NOTE | 2024-04-26 23:23 | CT_ITS ---
INDICATION: Hypoxia EXAMINATION: - CTA Chest WO/W Contrast Injection A radiation dose optimization technique was used for this scan. RADIATION DOSAGE (If Supplied By Facility): CTDIvol/DLP = ( 26.24 ) / ( 633.71 ) mGy/mGycm COMPARISON: Chest radiograph previous day. FINDINGS: Contrast enhanced serial CTA axial images through the chest with coronal and sagittal reformatted series. Additional dedicated coronal and sagittal MIP reformatted series provided as well. IV Contrast dosage and agent: 100 cc [id number] IV. MEDIASTINUM: No acute thoracic aortic abnormality. No pulmonary artery filling defects. Mediastinum is otherwise unremarkable. LUNG PARENCHYMA: Significant diffuse bilateral patchy groundglass airspace disease, upper lobe predominant. Right posterior dependent atelectasis. PLEURA: No pleural effusion. No pneumothorax. BONES: Serpiginous thoracic scoliosis. Old bilateral rib fracture deformities. UPPER ABDOMEN: Unremarkable. CT/CTA Chest W/WO Contrast IMPRESSION: Significant diffuse bilateral patchy groundglass airspace disease, upper lobe predominant, to include atypical infectious etiology. Recommend follow-up to resolution as neoplastic process is not excluded. No pulmonary embolus or acute aortic abnormality. Electronically Signed: Maximo Colon MD at 3:53 EDT ,
[2024-04-27 01:03] VITALS: BMI 34.9
[2024-04-27 03:32] VITALS: BP 120/75; PULSE 82; RESP 20; TEMP 36.6; O2SAT 97
[2024-04-27] MEDS: Budesonide Respules 0.5 MG/2 ML AMPUL.NEB. INHALATION (07:13)
[2024-04-27 07:14] VITALS: PULSE 82; RESP 18; O2SAT 94
--- NOTE | 2024-04-27 08:15 | PCM.PN.HOSP ---
Reason for Visit Reason for Visit: Diagnoses Hypoxemia (04/26/24) Objective Data Objective Data Vital Signs: Vital Signs Temp Pulse Resp BP Pulse Ox O2 Del Method O2 Flow Rate 97.8 F 82 18 120/75 94 Nasal Cannula 1.5 04/27/24 03:32 04/27/24 07:14 04/27/24 07:14 04/27/24 03:32 04/27/24 07:14 04/27/24 07:14 04/27/24 07:14 Oxygen Flow Rate (L/min) 1.5 Oxygen Delivery Method Nasal Cannula Weight: 86.1 kg Body Mass Index (BMI) 34.9 Intake & Output: Intake and Output for Last 24 Hours 04/25/24 04/26/24 04/27/24 23:59 23:59 23:59 Intake Total 2506.25 / 2806.25 550 / 550 Balance 2506.25 / 2806.25 550 / 550 Lab / Micro Data 04/26/24 04:45 04/26/24 13:45 Labs: Laboratory Results - last 24 hr 04/26/24 09:23: Sodium 129 L 04/26/24 09:40: Urine Osmolality 397, U Random Total Protein 8.1, Ur Random Sodium 72, Urine Creatinine 75.80, Protein/Creatinin Ratio 107, Urine Potassium 18.0, Urine Chloride 62 04/26/24 13:45: Sodium 128 L Micro: Microbiology 04/26/24 08:20 Mucosa - Nasopharyngeal Respiratory Panel (PCR) - Final 04/26/24 09:40 Urine, Clean Catch Legionella Antigen - Final 04/26/24 09:40 Urine, Clean Catch Streptococcus pneumoniae Antigen (M - Final 04/26/24 08:20 Mucosa - Nose SARS-CoV-2, Influenza & RSV (PCR) - Final Physical Exam Narrative Patient states he smokes 2 packs/day since age of 17 or 18. He also worked in the [email or web address] for 30 years. Drinks alcohol about 3-4 beers daily and sometimes hard liquor 3 shots. No fever. Patient has cough and brings up white mucus for last 1 to 2 weeks but no fever. Mild shortness of breath on exertion. Was prescribed 2 L of oxygen on April 24 Physical exam General: Alert, Oriented x3, Cooperative obesity grade 34.7 kg/m? HEENT: Atraumatic, PERRLA, EOMI, Normocephalic Oral: Oral mucosa moist no Gingival or Mucosal Lesions/ Ulcerations Neck: Supple, No JVD, Negative Carotid Bruits Chest wall/Lungs: Air entry diminished in bilateral lung bases. Bilateral coarse crepitations Cardiovascular: Regular rate, Regular Rhythm, Normal S1, Normal S2, No M/G/R Abdomen: Bowel Sounds Present, Soft, Non Tender, Non-Distended : No dysuria. No renal angle tenderness. No suprapubic tenderness. Extremities: No edema, Capillary Refill Less than 3 Seconds Skin: No rashes, No breakdown Musculoskeletal: No Tenderness to Palpation of Joints or Extremities Neurological: Cranial nerves II-XII grossly intact, DTR 2+/4. No acute focal neurological deficit. Psych/Mental Status: Flat affect. Had suicidal ideation but denies past attempt Assessment & Plan Assessment/Plan (1) Hypoxia: PLAN: Plan The patient is a 58 y/o M was brought to ED by squad for suicidal ideation, shortness of breath. Patient was having erratic behavior, confusion and SI with plan to shoot himself in the head. Patient was recently admitted in [facility] from April 17 to April 23 due to confusion, hyponatremia and alcohol withdrawal and reportedly, his sodium was 96 on admission at that time. Patient was again seen in the ER on 04/24 and was found to be hypoxic and was supposed to be discharged on oxygen but he did not wait for that. Patient denies prior history of suicidal attempt. Patient drinks alcohol and had before coming to ED. History of cocaine use in the distant past but denies any recent use #1. Acute encephalopathy, multifactorial, metabolic and toxic along with probable chronic hypoxic respiratory failure: Patient is being admitted to MedSurg floor. U tox was positive of barbiturates and cannabinoids. Hyponatremia management as below. Crisis evaluation and patient is in baseline mental status. Case management consult #2. Hyponatremia, hypochloremia, seems subacute/chronic Trembly hypotonic hypovolemic hyponatremia: Admission sodium 124, chloride 86. Sodium improved to 127. About a week ago patient's sodium was 96 as mentioned above. IV fluid normal saline with follow-up serum sodium #3. Hypertension, possibly arrhythmia but unclear: Continue home regimen including metoprolol, PRN hydralazine. #4. Hypothyroidism: TSH 5.55. Free T4 normal. #5. COPD w/ Chronic Hypoxic Respiratory Failure: Chest CTA shows significant diffuse bilateral patchy groundglass airspace disease predominantly in upper lobes. No pulmonary embolus or acute aortic abnormality. Was recommended follow-up chest CT scan for evaluate reevaluation. Continue home 2L NC, maintenance ATC budesonide therapy, DuoNeb as needed, incentive spirometry and Pep. With CT findings showing of groundglass opacities, possible atypical infection, COVID flu and RSV PCR are negative. Respiratory panel ordered. Aspergillus and histoplasma antibody also ordered. Does not seem bacterial pneumonia and therefore antibiotic not indicated and patient not having acute indication like fever, dyspnea at rest or tachypnea. #6. Chronic normocytic anemia, unclear chronicity: Admission hemoglobin 12.2, MCV 91.3, baseline hemoglobin unknown, follow-up H&H 10.5/32%. #7. Former tobacco use: Encourage continued tobacco cessation. #8. YURI: Will maintain on CPAP nightly. #9. DVT prophylaxis: Lovenox. Admission status changed from observation to full admission. 04/25/24 20:04: WBC 10.1, RBC 3.79 L, Hgb 12.2 L, Hct 34.6 L, MCV 91.3, MCH 32.2 H, MCHC 35.3, RDW Std Deviation 45.1 H, RDW Coeff of Scott 13.3, Plt Count 318, MPV 8.7, Immature Gran % (Auto) 3.600 H, Neut % (Auto) 65.0, Lymph % (Auto) 18.5 L, [place] % (Auto) 10.0, Eos % (Auto) 2.4, Baso % (Auto) 0.5, Absolute Neuts (auto) 6.6, Absolute Lymphs (auto) 1.87, Nucleated RBC % 0, D-Dimer Quant (PE/DVT) 0.65 H*, Sodium 124 L, Potassium 3.7, Chloride 86 L, Carbon Dioxide 27.0, Anion Gap 11, BUN 10, Creatinine 0.89, Estim Creat Clear Calc 69.87, Est GFR (MDRD) Af Amer 113, Est GFR (MDRD) Non-Af 93, BUN/Creatinine Ratio 11.3, Glucose 113 H, Calcium 9.5, Total Bilirubin 0.60, Direct Bilirubin 0.23, AST 26, ALT 50, Alkaline Phosphatase 51, Troponin I High Sens 5, Total Protein 7.4, Albumin 3.5, Globulin 3.9, Lipase 25, Ethyl Alcohol 3.0 04/25/24 21:10: Urine Opiates Screen NEGATIVE, Urine Methadone Screen NEGATIVE, Ur Barbiturates Screen POSITIVE H, Ur Phencyclidine Scrn NEGATIVE, Ur Amphetamines Screen NEGATIVE, MDMA (Ecstasy) Screen NEGATIVE, U Benzodiazepines Scrn NEGATIVE, Urine Cocaine Screen NEGATIVE, U Cannabinoids Screen POSITIVE H, Ur Drug Screen Comment 04/25/24 22:20: Phosphorus 5.0 H, Magnesium 2.1, Procalcitonin 0.05 04/26/24 04:45: WBC 8.1, RBC 3.38 L, Hgb 10.5 L, Hct 31.9 L, MCV 94.4 H, MCH 31.1, MCHC 32.9 D, RDW Std Deviation 46.2 H, RDW Coeff of Scott 13.4, Plt Count 281, MPV 8.6, Immature Gran % (Auto) 4.300 H, Neut % (Auto) 52.6, Lymph % (Auto) 26.0, [place] % (Auto) 12.4 H, Eos % (Auto) 3.7, Baso % (Auto) 1.0, Absolute Neuts (auto) 4.3, Absolute Lymphs (auto) 2.11, Nucleated RBC % 0, Sodium 127 L, Potassium 4.3, Chloride 93 L, Carbon Dioxide 26.0, Anion Gap 8, BUN 9, Creatinine 0.76, Estim Creat Clear Calc 100.70, Est GFR (MDRD) Af Amer 136, Est GFR (MDRD) Non-Af 112, BUN/Creatinine Ratio 11.9, Glucose 116 H, Calcium 8.9, Total Bilirubin 0.50, AST 24, ALT 44, Alkaline Phosphatase 46, Total Protein 6.6, Albumin 3.1 L, Globulin 3.5, Albumin/Globulin Ratio 0.9, TSH 5.55 H, Free T4 1.05 Clinical Impression(s) from Imaging Studies Brain CT 04/25/24 19:29 IMPRESSION: Negative head/brain CT without intravenous contrast. Electronically Signed: Jeanmarie Young DO at 21:00 EDT , Chest X-Ray 04/25/24 20:22 IMPRESSION: No radiographic evidence of acute cardiopulmonary disease. Electronically Signed: Jeanmarie Young DO at 21:00 EDT , Chest CTA 04/26/24 23:23 IMPRESSION: Significant diffuse bilateral patchy groundglass airspace disease, upper lobe predominant, to include atypical infectious etiology. Recommend follow-up to resolution as neoplastic process is not excluded. No pulmonary embolus or acute aortic abnormality. Electronically Signed: Maximo Colon MD at 3:53 EDT ,
[2024-04-27 08:55] VITALS: BP 126/82; PULSE 86; RESP 20; TEMP 36.6; O2SAT 98
[2024-04-27] MEDS: Folic Acid 1 MG Tablet PO (08:58)
[2024-04-27 08:59] VITALS: PULSE 86
[2024-04-27] MEDS: Enoxaparin 40 MG/0.4 ML Syringe SC (08:59)
[2024-04-27] MEDS: guaiFENesin 1,200 MG Tablet 1200 MG PO (08:59)
[2024-04-27] MEDS: Thiamine Hydrochloride 100 MG Tablet PO (08:59)
[2024-04-27] MEDS: Multivitamins,Ther W-Minerals Tablet 1 TABLET PO (08:59)
[2024-04-27] MEDS: Famotidine 20 MG Tablet PO (08:59)
[2024-04-27] MEDS: Metoprolol Tartrate 25 MG Tablet PO (08:59)
--- NOTE | 2024-04-27 08:59 | DS.PCM_ITS ---
Providers Date of Admission: 04/26/24 Date of Discharge: 04/27/24 Primary Care Physician: HUMAIRA SANDERS Reason For Visit: HYPOXIA/COPD, SUICIDAL IDEATION Diagnosis Discharge Diagnosis (1) Hypoxia: Status: Acute Code(s): R09.02 - Hypoxemia Plan The patient is a 58 y/o M was brought to ED by squad for suicidal ideation, shortness of breath. Patient was having erratic behavior, confusion and SI with plan to shoot himself in the head. Patient was recently admitted in [facility] from April 17 to April 23 due to confusion, hyponatremia and alcohol withdrawal and reportedly, his sodium was 96 on admission at that time. Patient was again seen in the ER on 04/24 and was found to be hypoxic and was supposed to be discharged on oxygen but he did not wait for that. Patient denies prior history of suicidal attempt. Patient drinks alcohol and had before coming to ED. History of cocaine use in the distant past but denies any recent use 1. Acute encephalopathy, multifactorial, metabolic and toxic along with probable chronic hypoxic respiratory failure: Patient is being admitted to [facility] floor. U tox was positive of barbiturates and cannabinoids. Hyponatremia management as below. Crisis evaluation and patient is in baseline mental status. Case management consult ? Patient was assessed by crisis was felt patient was safe to go home to follow- up with primary care physician for referral to be evaluated by psychiatrist 2. Hypochloremic hyponatremia ? Patient was on HCTZ this was discontinued 3. Essential hypertension ? Did continue with home meds except for HCTZ. New prescription was written for losartan on discharge 4. Dyslipidemia -Patient is on statin therapy, continued at home dose 5. Class I obesity with BMI of 34.7 ? Complicating care weight loss advised 6. Hypothyroidism - Patient is on levothyroxine home dose continued 7. BPH with lower urinary obstructive symptoms - Patient treated with tamsulosin 8. DVT prophylaxis ? SC Lovenox Medications at Discharge Home Medications atorvastatin 40 mg tablet 40 mg PO DAILY 04/25/24 cyclobenzaprine 10 mg tablet 10 mg PO TID 04/25/24 diclofenac sodium 1 % topical gel 2 g topical DAILY 04/25/24 folic acid 1 mg tablet 1 mg PO DAILY 04/25/24 gabapentin 100 mg capsule 100 mg PO DAILY 04/25/24 hydroxyzine pamoate 50 mg capsule 50 mg PO TID PRN PRN itch 04/25/24 levothyroxine 75 mcg tablet (Euthyrox) 75 mcg PO DAILY 04/25/24 metoprolol tartrate 25 mg tablet 25 mg PO BID 04/25/24 multivitamin with iron (Daily Vitamin with Iron tablet) 1 tab PO DAILY 04/25/24 pyridoxine (vitamin B6) 100 mg tablet 100 mg PO DAILY 04/25/24 tamsulosin 0.4 mg capsule (Flomax) 0.4 mg PO DAILY 04/25/24 losartan 50 mg tablet 50 mg PO DAILY #90 tabs 04/27/24 Hospital Course Summary of Care Provided Minutes Spent on Discharge: 32 Physical Exam Narrative GENERAL: cooperative HEENT: Atraumatic; normocephalic EYES; Anicteric, Normal Conjunctiva NECK; supple, normal thyroid, RESPIRATORY: Diminished to auscultation CARDIOVASCULAR: Regular S1 S2, GI: soft, normoactive bowel sounds, : No Renal angle tenderness; EXTREMITIES: No edema, no clubbing, MUSCULOSKELETAL: no muscle wasting NEURO: Awake; no lateralizing signs. SKIN: No Rash PSYCH; Flat affect Weight / BMI Weight Weight: 86.1 kg Body Mass Index (BMI) 34.9 ABG / Lab / Microbiology Data 04/27/24 09:08 04/27/24 09:08 Laboratory: Laboratory Results - last 24 hr 04/26/24 09:23: Sodium 129 L 04/26/24 09:40: Urine Osmolality 397, U Random Total Protein 8.1, Ur Random Sodium 72, Urine Creatinine 75.80, Protein/Creatinin Ratio 107, Urine Potassium 18.0, Urine Chloride 62 04/26/24 13:45: Sodium 128 L Microbiology: Microbiology 04/26/24 08:20 Mucosa - Nasopharyngeal Respiratory Panel (PCR) - Final 04/26/24 09:40 Urine, Clean Catch Legionella Antigen - Final 04/26/24 09:40 Urine, Clean Catch Streptococcus pneumoniae Antigen (M - Final 04/26/24 08:20 Mucosa - Nose SARS-CoV-2, Influenza & RSV (PCR) - Final D/C Instructions Discharge Diet: No restrictions Discharge Activity: Return to Normal Activity Call your doctor if you observe: Fever of 101 or Higher, Shortness of breath, Fainting spells and Chest pain Meaningful Use Info Meaningful Use Meaningful Use Diagnoses (Choose all that apply): None applicable Ischemic Stroke Statin Dosing Therapy Reference: STATIN DOSE THERAPY REFERENCE: * Patients > 75 years receive moderate or high dose statin therapy. * Patients 75 years or YOUNGER should receive HIGH intensity statin dose unless contraindicated. You will be required to document reason for non-treatment if statin daily dose does not meet guidelines. HIGH DOSE STATIN THERAPY DAILY Atorvastatin > than or = to 40 mg Rosuvastatin > than or = to 20 mg Amlodipine + Atorvastatin > than or = to 2.5/40 mg Ezetimibe + Simvastatin 10/80 mg Simvastatin 80mg Discharge Plan Admission Admit Date/Time: 04/26/24 09:19 Attending Provider: Bob Meyers Primary Care Provider: HUMAIRA SANDERS Consulting Providers: Magi Rodriguez; Miguel Mead Discharge Orders/Prescriptions Prescriptions: New losartan 50 mg tablet 50 mg PO DAILY Qty: 90 0RF Continued hydroxyzine pamoate 50 mg capsule 50 mg PO TID PRN PRN (Reason: itch) metoprolol tartrate 25 mg tablet 25 mg PO BID atorvastatin 40 mg tablet 40 mg PO DAILY cyclobenzaprine 10 mg tablet 10 mg PO TID folic acid 1 mg tablet 1 mg PO DAILY gabapentin 100 mg capsule 100 mg PO DAILY levothyroxine [Euthyrox] 75 mcg tablet 75 mcg PO DAILY multivitamin with iron [Daily Vitamin with Iron] Tablet 1 tab PO DAILY pyridoxine (vitamin B6) 100 mg tablet 100 mg PO DAILY tamsulosin [Flomax] 0.4 mg capsule 0.4 mg PO DAILY diclofenac sodium 1 % gel 2 g topical DAILY Discontinued furosemide [Lasix] 20 mg tablet 20 mg PO DAILY losartan-hydrochlorothiazide [Hyzaar] 50-12.5 mg tablet 1 tab PO DAILY Referrals / Follow Up: HUMAIRA SANDERS [Other] NOT,DEFINED [Non-Staff] - Disposition Disposition (needs filled in before D/C Order can be placed): Home, Self Care Charges/Coding Visit Charges Inpatient E&M: 00551 Disch Hosp >30min
--- NOTE | 2024-04-27 09:22 | PHA.DC.MR.R ---
Pharmacy [place] Med Reconciliation Pharmacy Service has performed discharge medication reconciliation for this patient. The patient's discharge medication list was reviewed for discrepancies and discrepancies were resolved. Medications at Discharge Home Medications atorvastatin 40 mg tablet 40 mg PO DAILY 04/25/24 cyclobenzaprine 10 mg tablet 10 mg PO TID 04/25/24 diclofenac sodium 1 % topical gel 2 g topical DAILY 04/25/24 folic acid 1 mg tablet 1 mg PO DAILY 04/25/24 gabapentin 100 mg capsule 100 mg PO DAILY 04/25/24 hydroxyzine pamoate 50 mg capsule 50 mg PO TID PRN PRN itch 04/25/24 levothyroxine 75 mcg tablet (Euthyrox) 75 mcg PO DAILY 04/25/24 metoprolol tartrate 25 mg tablet 25 mg PO BID 04/25/24 multivitamin with iron (Daily Vitamin with Iron tablet) 1 tab PO DAILY 04/25/24 pyridoxine (vitamin B6) 100 mg tablet 100 mg PO DAILY 04/25/24 tamsulosin 0.4 mg capsule (Flomax) 0.4 mg PO DAILY 04/25/24 losartan 50 mg tablet 50 mg PO DAILY #90 tabs 04/27/24
[2024-04-27 09:26] LABS: Absolute Neutrophil Count 4.6 X10^3/uL (2.0-7.7); Basophil# 0.06 X10^3/uL; Basophil% 0.8 % (0-1); Eosinophil# 0.19 X10^3/uL; Eosinophils% 2.6 % (0-5); Hematocrit 35.9 % (40-54); Hemoglobin 11.8 g/dL (13.0-16.5); Lymphocyte % 24.8 % (19-41); Mean Corp Hgb Conc 32.9 g/dL (32-36); Mean Corpuscular Hgb 31.2 pg (27.0-32.0); Mean Platelet Vol. 8.7 fl (6.2-12.0); Monocyte% 6.9 % (0-10); NRBC Flagged by Analyzer 0 % (0-5); Neutrophil # 4.58 X10^3/uL (2.7-7.7); Neutrophil % 63.1 % (47-70); Platelet Count 304 K/mm3 (150-450); RBC Distribution Width CV 13.5 % (11.6-14.6); RBC Distribution Width SD 46.9 fl (35.1-43.9); Red Blood Count 3.78 M/mm3 (4.6-6.2); White Blood Count 7.3 K/mm3 (4.4-11.0)
[2024-04-27 09:48] LABS: Anion Gap 6 (5-15); BUN 11 mg/dL (7-18); BUN/Creat Ratio 11.6 RATIO (10-20); Calcium,Total 9.6 mg/dL (8.5-10.1); Chloride 93 mmol/L (98-107); Creatinine, Serum 0.95 mg/dL (0.70-1.30); EST Glomerular Filtration Rate 86 mL/min (>60); Est Glom Filt Rate - Afr Amer 104 mL/min (>60); Estimated Creatinine Clearance 80.56 ml/min; Glucose 123 mg/dL (74-106); Magnesium 2.3 mg/dL (1.6-2.6); Phosphorus 3.6 mg/dL (2.5-4.9); Potassium 4.1 mmol/L (3.5-5.1); Sodium Level 126 mmol/L (136-145)
--- NOTE | 2024-04-27 09:50 | CASEMGMT ---
Addendum entered by Jessica Blas 04/27/24 15:45: call placed to pt, no answer. Unable to leave message for return call DT VM is full. Original Note: RN CM went in to see pt for initial RN CM assessment, pt was already DC and out of room. Will attempt to call pt later.
[2024-04-30 00:07] LABS: Aspergillus fumigatus <0.10 kU/L (Class 0)
[2024-04-30 17:08] LABS: Aspirgillus flavus Negative (Neg:<1:1); Aspirgillus fumigatus Negative (Neg:<1:1); Aspirgillus niger Negative (Neg:<1:1); Histoplasma Abs Negative (Neg:<1:1)
== END 2024-04-27 09:47 | disposition home or self-care (01) | DRG 57 ==
LOC: ED 21:14 → MS3 22:11
PROVIDERS: Internal Medicine; Admitting Provider Family Medicine; Emergency Provider Emergency Medicine; Visit Provider Internal Medicine
DX: A81.2 Progressive multifocal leukoencephalopathy (principal); E87.1 Hypo-osmolality and hyponatremia; J96.11 Chronic respiratory failure with hypoxia; E87.8 Other disorders of electrolyte and fluid balance, not elsewhere classified; J44.9 Chronic obstructive pulmonary disease, unspecified; F14.10 Cocaine abuse, uncomplicated; F19.19 Other psychoactive substance abuse with unspecified psychoactive substance-induced disorder; F10.10 Alcohol abuse, uncomplicated; I10 Essential (primary) hypertension; E03.9 Hypothyroidism, unspecified; D64.9 Anemia, unspecified; F12.10 Cannabis abuse, uncomplicated; G47.33 Obstructive sleep apnea (adult) (pediatric); E78.5 Hyperlipidemia, unspecified; F17.210 Nicotine dependence, cigarettes, uncomplicated; N13.9 Obstructive and reflux uropathy, unspecified; Z99.89 Dependence on other enabling machines and devices; Z96.643 Presence of artificial hip joint, bilateral; Z91.198 Patient's noncompliance with other medical treatment and regimen for other reason; N40.0 Benign prostatic hyperplasia without lower urinary tract symptoms
CPT/HCPCS: 36415; 70450; 71045; 71275; 80048; 80053; 80076; 80307; 80320; 82436; 82570; 82977; 83690; 83735; 83935; 84100; 84133; 84145; 84156; 84295; 84300; 84439; 84443; 84484; 85025; 85379; 86003; 86606; 86698; 87449; 87631; 87633; 93005; 94002; 94640; 94668; 99285; J7030; Q9967; A4216; G0480